=== PATIENT | male | born 1955 | race Caucasian/White ===

== ENCOUNTER 2022-05-02 09:01 | Outpatient (CLI) | payer MEDICARE, BC | END 2022-05-02 09:02 | disposition home or self-care (01) | LOC: CSHCT 09:01 | PROVIDERS: ATTEND Student in an Organized Health Care Education/Training Program | DX: M54.2 Cervicalgia (principal); Z98.1 Arthrodesis status; M47.812 Spondylosis without myelopathy or radiculopathy, cervical region; M47.813 Spondylosis without myelopathy or radiculopathy, cervicothoracic region | CPT/HCPCS: 72125 ==